=== PATIENT | female | born 1980 | race Asian ===

== ENCOUNTER 2022-05-29 18:28 | Emergency (ER) | payer OTHER, SELFPAY ==
--- NOTE | 2022-05-29 18:33 | DI.US.S_ITS ---
PROCEDURE: US OB <= 14 WEEKS FETUS INDICATIONS: SPOTTING. OUTSIDE/PRIOR DATING DATA: Last menstrual period (LMP): 04/19/2022. LMP-based estimated date of delivery (CLEVE): 01/24/2023. TECHNIQUE: Real-time scanning was performed of the fetus and maternal pelvic organs, with image documentation. Endovaginal scanning was also performed to better visualize the fetus and maternal ovaries. COMPARISON: None. FINDINGS: Embryo: There is heterogeneous thickening of the endometrium with indistinct margins. Multiple cystic structures are demonstrated within the endometrium and myometrium with the largest posteriorly in the lower uterine segment measuring up to approximately 1.0 cm in dimension. There is associated heterogeneous appearance of the myometrium. No discrete pole identified. No definite yolk sacs. Posteriorly within the myometrium, there is an ill-defined hypoechoic oval mass lesion measuring approximately 2.1 x 1.6 x 1.5 cm consistent with an intramural fibroid. Maternal organs: The right ovary was not well visualized. The left ovary demonstrates 2 oval hypoechoic structures including a thick-walled cyst measuring up to 2.1 x 1.6 x 1.4 cm likely representing a corpus luteal cyst. An additional oval hypoechoic region measuring 1.6 x 1.1 x 1.4 cm is nonspecific. IMPRESSION: 1. Heterogeneous thickened appearance of the endometrium with indistinct margins. Multiple small scattered cystic lesions are demonstrated within the endometrium and myometrium without a discrete pole. The findings are nonspecific and the differential includes adenomyosis or spontaneous in progress. A viable intrauterine is not definitively identified. However, clinical follow-up is recommended with serial beta HCGs and a repeat ultrasound if indicated. 2. Probable corpus luteal cyst in the left ovary as well as an additional small oval hypoechoic structure. Recommend attention on follow-up. Findings discussed with Dr. Truong on 05/29/2022 at 9:44 p.m.. We strive to produce accurate, complete, and clear reports of imaging services. To assist us in improving patient care, this report was composed using standard report templates and voice recognition software. Therefore, it may contain abnormal punctuation, insertions and/or omissions. Occasional wrong-word or sound-alike substitutions may occur. Though we review the report and make efforts to correct it, we do recommend that the report be read carefully in proper context to recognize any text inaccuracies. Dictated by: Don Rogers M.D. on 05/29/2022 at 21:42 Approved by: Don Rogers M.D. on 05/29/2022 at 21:54
[2022-05-29 18:37] VITALS: BP 140/69; PULSE 87; RESP 18; TEMP 37.1; O2SAT 100; BMI 16.7
[2022-05-29 19:05] LABS: Add Manual Diff / Slide Review NO; Basophils Absolute Auto 100 /uL (0-100); Basophils Percent Auto 0.9 % (0-2); Eosinophils Absolute Auto 200 /uL (0-450); Eosinophils Percent Auto 2.9 % (2-4); Hematocrit 37.6 % (36-46); Hemoglobin 12.5 g/dL (12.0-16.0); Lymphocytes Absolute Auto 1600 /uL (1100-4500); Mean Corpuscular HGB Conc 33.3 % (30-36); Mean Corpuscular Hemoglobin 27.1 PG (26-34); Mean Corpuscular Volume 81.4 fL (80-100); Monocytes Absolute Auto 600 /uL (0-900); Monocytes Percent Auto 9.1 % (3-14); Neutrophils Absolute Auto 3800 /uL (1500-7000); Neutrophils Percent Auto 61.1 % (50-75); Platelet Count 275 X10^3/uL (150-400); Red Blood Cell Count 4.62 X10^6/uL (4.0-5.2); Red Cell Distribution Width 14.5 % (11.6-14.8); White Blood Cell Count 6.2 X10^3/uL (4.5-11.0)
[2022-05-29 19:22] LABS: BUN Creatinine Ratio 16.9 (6-22); Blood Urea Nitrogen 13 mg/dL (7-17); Calcium 8.9 mg/dL (8.4-10.2); Carbon Dioxide 25 mmol/L (22-32); Chloride 105 mmol/L (98-107); Estimated Glomerular Filt Rate > 60 mL/min (>60); Glucose 114 mg/dL (70-100); HEMOLYSIS 38 (0-50); Potassium 3.7 mmol/L (3.4-5.1); Sodium 139 mmol/L (137-145)
[2022-05-29 19:39] LABS: HCG Quantitative /Beta subunit 1148.5 mIU/mL
[2022-05-29 19:44] LABS: Bacteria Urine Occasional (0-1); Culture Indicated Urine Cult Not Indicated; RBC Urine 0-1/HPF (0-5/HPF); Squamous Epithelial Cell Urine 10-30 /HPF (0-5/HPF); WBC Urine 5-10/HPF (0-5/HPF)
--- NOTE | 2022-05-29 20:04 | ED_ITS ---
HPI - General Chief complaint: Vaginal Bleeding Stated complaint: 6 weeks /spotting Time Seen by Provider: 05/29/22 19:49 Source: patient Mode of arrival: Ambulatory Limitations: no limitations History of Present Illness HPI Narrative: 42-year-old female nonsmoker is a at about 6 weeks based on last menstrual cycle. She presents today with her in the chief complaint of a minimal amount of painless spotting earlier today that has since resolved. She denies any dizziness, weakness or lightheadedness. She has no fever or chills. She denies any urinary complaints such as dysuria, frequency or urgency and denies any leakage of fluid or vaginal discharge. Related Data Home Medications Medication Instructions Recorded Confirmed No Known Home Medications 02/11/22 02/11/22 Allergies Allergy/AdvReac Type Severity Reaction Status Date / Time latex Allergy Intermediate Hives Verified 05/29/22 18:40 Review of Systems Review of Systems Narrative: GENERAL: Denies chills, fatigue, malaise, fever, sweats. HEENT: Denies sinus pain, ear pain, sore throat, difficulty swallowing, dizzin ess. RESPIRATORY: Denies dyspnea, cough, wheezing, hemoptysis, sputum. CARDIOVASCULAR: Denies chest pain, palpitations, orthopnea, edema, GASTROINTESTINAL: Denies nausea, vomiting, abdominal pain, diarrhea, constipation, melena. : See HPI MUSCULOSKELETAL: denies weakness, joint pain, or bony pain SKIN: Denies rash, skin lesions, or other NEUROLOGIC: Denies weakness, headache, numbness, change in speech, confusion, seizures, incoordination. PSYCHIATRIC: No concerning psychosocial issues. 12 point review of systems is negative except for those stated above Exam Narrative Exam Narrative: GENERAL: [42] year old patient appears stated age. Well-developed patient, in mild distress. HEAD: Atraumatic. Normocephalic. EYES: Pupils equal round and reactive. Extraocular motions intact. No scleral icterus. No injection or drainage. ENT: Nose without bleeding, purulent drainage. Throat without erythema, tonsillar hypertrophy or exudate. Airway patent. NECK: Trachea midline. Non tender CARDIOVASCULAR: Regular rate and rhythm without murmurs, gallops, or rubs. RESPIRATORY: Clear to auscultation. Breath sounds equal bilaterally. No wheezes, rales, or rhonchi. GASTROINTESTINAL: Abdomen soft, non-tender, nondistended. EXTREMITIES: No edema or joint tenderness. BACK: Nontender without deformity or crepitance. No flank tenderness. NEURO: AOx3. SKIN: No rash or erythema of visible areas Initial Vital Signs Initial Vital Signs: Vital Signs Temperature 98.7 F 05/29/22 18:37 Pulse Rate 87 05/29/22 18:37 Respiratory Rate 18 05/29/22 18:37 Blood Pressure 140/69 05/29/22 18:37 Pulse Oximetry 100 05/29/22 18:37 Oxygen Delivery Method 05/29/22 18:37 Course Orders Ordered: ED Orders 05/29/22 18:33 US OB <= 14 weeks fetus Stat 05/29/22 18:46 ABO RH Type Stat Basic Metabolic Panel Stat Beta HCG, Quant [HCG Quantitative /Beta subunit] Stat Complete Blood Count AUTO DIFF Stat 05/29/22 18:51 Urine Microscopic Stat Vital Signs Vital signs: Vital Signs - 8 hr 05/29/22 20:35 Pulse Rate 90 Respiratory Rate 16 Blood Pressure 116/69 Pulse Oximetry 99 Oxygen Delivery Method Room Air MDM - OB/Uterine Contractions Lab Data Result diagrams: 05/29/22 18:46 05/29/22 18:46 Labs: Lab Results 05/29/22 05/29/22 05/29/22 Range/Units 18:46 18:46 18:46 WBC 6.2 (4.5-11.0) X10^3/uL RBC 4.62 (4.0-5.2) X10^6/uL Hgb 12.5 (12.0-16.0) g/dL Hct 37.6 (36-46) % MCV 81.4 (80-100) fL MCH 27.1 (26-34) PG MCHC 33.3 (30-36) % RDW 14.5 (11.6-14.8) % Plt Count 275 (150-400) X10^3/uL Neut % (Auto) 61.1 (50-75) % Lymph % (Auto) 26.0 (25-40) % [place] % (Auto) 9.1 (3-14) % Eos % (Auto) 2.9 (2-4) % Baso % (Auto) 0.9 (0-2) % Neut # (Auto) 3800 (1402-9654) /uL Lymph # (Auto) 1600 (6928-5937) /uL [place] # (Auto) 600 (0-900) /uL Eos # (Auto) 200 (0-450) /uL Baso # (Auto) 100 (0-100) /uL Sodium 139 (137-145) mmol/L Potassium 3.7 (3.4-5.1) mmol/L Chloride 105 (98-107) mmol/L Carbon Dioxide 25 (22-32) mmol/L BUN 13 (7-17) mg/dL Creatinine 0.77 (0.52-1.04) mg/dL Estimated GFR > 60 (>60) mL/min BUN/Creatinine Ratio 16.9 (6-22) Glucose 114 H (70-100) mg/dL Calcium 8.9 (8.4-10.2) mg/dL HCG, Quant 1148.5 mIU/mL Urine RBC (0-5/HPF) Urine WBC (0-5/HPF) Ur Squamous Epith Cells (0-5/HPF) Urine Bacteria (None) Ur Culture Indicated? Blood Type B Positive 05/29/22 Range/Units 18:51 WBC (4.5-11.0) X10^3/uL RBC (4.0-5.2) X10^6/uL Hgb (12.0-16.0) g/dL Hct (36-46) % MCV (80-100) fL MCH (26-34) PG MCHC (30-36) % RDW (11.6-14.8) % Plt Count (150-400) X10^3/uL Neut % (Auto) (50-75) % Lymph % (Auto) (25-40) % [place] % (Auto) (3-14) % Eos % (Auto) (2-4) % Baso % (Auto) (0-2) % Neut # (Auto) (2754-3814) /uL Lymph # (Auto) (5953-9083) /uL [place] # (Auto) (0-900) /uL Eos # (Auto) (0-450) /uL Baso # (Auto) (0-100) /uL Sodium (137-145) mmol/L Potassium (3.4-5.1) mmol/L Chloride (98-107) mmol/L Carbon Dioxide (22-32) mmol/L BUN (7-17) mg/dL Creatinine (0.52-1.04) mg/dL Estimated GFR (>60) mL/min BUN/Creatinine Ratio (6-22) Glucose (70-100) mg/dL Calcium (8.4-10.2) mg/dL HCG, Quant mIU/mL Urine RBC 0-1/hpf (0-5/HPF) Urine WBC 5-10/hpf H (0-5/HPF) Ur Squamous Epith Cells 10-30 /hpf H (0-5/HPF) Urine Bacteria Occasional (0-1) (None) Ur Culture Indicated? Cult not indicated Blood Type Urine Dip Bedside Urine Glucose Negative Bedside Urine Bilirubin - Negative Bedside Urine Ketone - Negative Urine Specific [place] 1.005 Bedside Urine Occult Blood +++ Bedside Urine pH 6.5 Bedside Urine Protein - Negative Bedside Urine Urobilinogen - Negative Bedside Urine Nitrite - Negative Bedside Urine Leukocytes +/- 15 Esterase Imaging Data US - OB: Radiologist's Impression: Close Ultrasound (Signed) Don Rogers - 05/29/22 [place] [address] Ultrasound Report Signed Patient: Luz Maria Rodriguez MR#: [id number] : 1980 Acct:[id number] Age/Sex: 42 / F Date of Service: 05/29/22 Loc: Accession Number: [id number] ?? Procedure: US OB <= 14 weeks fetus Ordering Provider: Rowdy Truong D.O. PROCEDURE:? US OB <= 14 WEEKS FETUS ? INDICATIONS:? SPOTTING. ? OUTSIDE/PRIOR DATING DATA:? Last menstrual period (LMP):? 04/19/2022. LMP-based estimated date of delivery (CLEVE):? 01/24/2023.? ? TECHNIQUE:? Real-time scanning was performed of the fetus and maternal pelvic organs, with image documentation.? Endovaginal scanning was also performed to better visualize the fetus and maternal ovaries.? ? COMPARISON:? None. ? FINDINGS:? ? Embryo:? There is heterogeneous thickening of the endometrium with indistinct margins.? Multiple cystic structures are demonstrated within the endometrium and myometrium with the largest posteriorly in the lower uterine segment measuring up to approximately 1.0 cm in dimension.? There is associated heterogeneous appearance of the myometrium.? No discrete pole identified.? No definite yolk sacs. ? Posteriorly within the myometrium, there is an ill-defined hypoechoic oval mass lesion measuring approximately 2.1 x 1.6 x 1.5 cm consistent with an intramural fibro id. ? Maternal organs:? The right ovary was not well visualized.? The left ovary demonstrates 2 oval hypoechoic structures including a thick-walled cyst measuring up to 2.1 x 1.6 x 1.4 cm likely representing a corpus luteal cyst.? An additional oval hypoechoic region measuring 1.6 x 1.1 x 1.4 cm is nonspecific. ? ? IMPRESSION:? ? 1. Heterogeneous thickened appearance of the endometrium with indistinct margins.? Multiple small scattered cystic lesions are demonstrated within the endometrium and myometrium without a discrete pole.? The findings are nonspecific and the differential includes adenomyosis or spontaneous in progress.? A viable intrauterine is not definitively identified.? However, clinical follow-up is recommended with serial beta HCGs and a repeat ultrasound if indicated. ? 2. Probable corpus luteal cyst in the left ovary as well as an additional small oval hypoechoic structure.? Recommend attention on follow-up. ? Findings discussed with Dr. Truong on 05/29/2022 at 9:44 p.m.. ? We strive to produce accurate, complete, and clear reports of imaging services. To assist us in improving patient care, this report was composed using standard report templates and voice recognition software. Therefore, it may contain abnormal punctuation, insertions and/or omissions. Occasional wrong-word or sound-alike substitutions may occur. Though we review the report and make efforts to correct it, we do recommend that the report be read carefully in proper context to recognize any text inaccuracies. ? Dictated by: Don Rogers M.D. on 05/29/2022 at 21:42 ? ? Approved by: Don Rogers M.D. on 05/29/2022 at 21:54 ? Discharge Plan Departure Patient Disposition: Home Clinical Impression: Vaginal bleeding affecting early Instructions: DI for Vaginal Bleeding During Activity Restrictions/Additional Instructions: *You have been diagnosed with [vaginal bleeding early in .] *What to do: *Please continue to take your regular medications as directed. *Please follow up with your salicylic acid blender provider in 2-3 days, call for an appointment. Let them know you were seen in the Emergency Department and that we ask that you be seen in follow up. We will electronically transmit a record of today's note if they are in our system *Return to Emergency Department if you should have any new, worsening or concerning symptoms, such as [fever greater than 101 F, shaking chills, bleeding through a pad per hour, worsening pain, persistent vomiting or other bothersome symptoms] Prescriptions: No Action No Known Home Medications Referrals: Miscellaneous,DoctorMD [Primary Care Provider] - Marcie Voss DO [Physician] - Visit Report Forms: Patient Portal/API
[2022-05-29 20:35] VITALS: BP 116/69; PULSE 90; RESP 16; O2SAT 99
== END 2022-05-29 21:54 | disposition home or self-care (01) ==
PROVIDERS: Emergency Provider Emergency Medicine
DX: O20.9 Hemorrhage in early pregnancy, unspecified (principal); Z3A.01 Less than 8 weeks gestation of pregnancy
CPT/HCPCS: 76801; 76802; 76817; 80048; 81003; 81015; 84702; 85025; 86900; 86901; 99283; 99284

== ENCOUNTER 2022-06-03 13:35 | Emergency (ER) | payer OTHER, SELFPAY ==
[2022-06-03 13:37] VITALS: BP 123/56; PULSE 84; RESP 17; TEMP 36.6; O2SAT 100; BMI 16.7
--- NOTE | 2022-06-03 13:47 | DI.US.S_ITS ---
PROCEDURE: US OB <= 14 WEEKS FETUS INDICATIONS: bleeding and pain OUTSIDE/PRIOR DATING DATA: Last menstrual period (LMP): April 19, 2022. LMP-based estimated date of delivery (CLEVE): January 24, 2023. First dating scan (date and location): June 03, 2022, [facility]. Estimated date of delivery (CLEVE) from first dating scan: January 28, 2023. TECHNIQUE: Real-time scanning was performed of the fetus and maternal pelvic organs, with image documentation. Endovaginal scanning was also performed to better visualize the fetus and maternal ovaries. COMPARISON: [facility], , OB <= 14 WEEKS FETUS, 05/29/2022, 19:30. FINDINGS: Embryo: There is a single live intrauterine gestation with a gestational age of 5 weeks, 6 days by crown-rump length. A yolk sac is visualized. Heart rate: 89 BPM Maternal organs: Ovaries the right ovary has a normal appearance. Multiple cystic regions are redemonstrated within the uterus, likely similar to the comparison ultrasound dated May 29, 2022. There is likely a left corpus luteal cyst redemonstrated. IMPRESSION: 1. Single live intrauterine gestation with a gestational age of 5 weeks, 6 days by crown-rump length and a heart rate of 89 BPM. We strive to produce accurate, complete, and clear reports of imaging services. To assist us in improving patient care, this report was composed using standard report templates and voice recognition software. Therefore, it may contain abnormal punctuation, insertions and/or omissions. Occasional wrong-word or sound-alike substitutions may occur. Though we review the report and make efforts to correct it, we do recommend that the report be read carefully in proper context to recognize any text inaccuracies. Dictated by: La Cruz M.D. on 06/03/2022 at 15:21 Approved by: La Cruz M.D. on 06/03/2022 at 15:25
[2022-06-03 14:56] LABS: Add Manual Diff / Slide Review NO; Basophils Absolute Auto 300 /uL (0-100); Basophils Percent Auto 3.8 % (0-2); Eosinophils Absolute Auto 100 /uL (0-450); Eosinophils Percent Auto 2.1 % (2-4); Hematocrit 36.5 % (36-46); Hemoglobin 12.5 g/dL (12.0-16.0); Lymphocytes Absolute Auto 1300 /uL (1100-4500); Lymphocytes Percent Auto 18.8 % (25-40); Mean Corpuscular HGB Conc 34.1 % (30-36); Mean Corpuscular Hemoglobin 27.6 PG (26-34); Monocytes Absolute Auto 500 /uL (0-900); Neutrophils Absolute Auto 4800 /uL (1500-7000); Neutrophils Percent Auto 68.3 % (50-75); Platelet Count 248 X10^3/uL (150-400); Red Blood Cell Count 4.51 X10^6/uL (4.0-5.2); Red Cell Distribution Width 14.5 % (11.6-14.8)
[2022-06-03 15:07] LABS: Alanine Aminotransferase 22 IU/L (<35); Albumin 4.4 g/dL (3.5-5.0); Albumin Globulin Ratio 1.4 (1.0-2.8); Alkaline Phosphatase 37 U/L (38-126); Aspartate Aminotransferase 27 IU/L (14-36); BUN Creatinine Ratio 13.3 (6-22); Bilirubin Total 0.4 mg/dL (0.2-1.3); Blood Urea Nitrogen 8 mg/dL (7-17); Calcium 8.5 mg/dL (8.4-10.2); Carbon Dioxide 24 mmol/L (22-32); Chloride 105 mmol/L (98-107); Estimated Glomerular Filt Rate > 60 mL/min (>60); Globulin 3.1 g/dL (1.7-4.1); Glucose 100 mg/dL (70-100); HEMOLYSIS < 15 (0-50); Potassium 3.6 mmol/L (3.4-5.1); Sodium 140 mmol/L (137-145); Total Protein 7.5 g/dL (6.3-8.2)
--- NOTE | 2022-06-03 15:27 | ED_ITS ---
HPI - General Chief complaint: Vaginal Bleeding Stated complaint: L side abd pain, back pain, 6wks Time Seen by Provider: 06/03/22 14:49 Source: patient Mode of arrival: Ambulatory History of Present Illness HPI Narrative: Patient is a 42-year-old female presenting for the 2nd time in 1 week with vaginal bleeding and cramping. She was seen evaluated here 05/29/2022 for the same. She had an ultrasound and blood work at that time hCG was 1148. She did not have recheck in 48 hours. Today she had severe left-sided cramping all the way front tab off. She feels a little nauseous. She says the bleeding has never stopped. It is not significant. She does not feel cold past throughout the day. She notices it more when she wipes. Related Data Home Medications Medication Instructions Recorded Confirmed No Known Home Medications 02/11/22 06/03/22 Allergies Allergy/AdvReac Type Severity Reaction Status Date / Time latex Allergy Intermediate Hives Verified 06/03/22 13:47 Review of Systems Review of Systems Narrative: GENERAL: Denies chills, fatigue, malaise, fever, sweats, travel HEENT: Denies sinus pain, ear pain, sore throat, difficulty swallowing, neck pain RESPIRATORY: Denies dyspnea, cough, wheezing, hemoptysis, sputum. CARDIOVASCULAR: Denies chest pain, palpitations, orthopnea, edema GASTROINTESTINAL: See HPI : Denies dysuria, frequency, incontinence, hematuria, urinary retention, flank pain. [employer] SYSTEMS ADMINISTRATOR: See HPI MUSCULOSKELETAL: Denies weakness, joint pain, or bony pain SKIN: No rash, no erythema, no pruritus NEUROLOGIC: Denies weakness, dizziness, headache, numbness, change in speech, confusion PSYCHIATRIC: No concerning psychosocial issues. 12 point review of systems is negative except for those stated above and HPI Exam Initial Vital Signs Initial Vital Signs: Vital Signs Temperature 97.8 F 06/03/22 13:37 Pulse Rate 84 06/03/22 13:37 Respiratory Rate 17 06/03/22 13:37 Blood Pressure 123/56 L 06/03/22 13:37 Pulse Oximetry 100 06/03/22 13:37 Oxygen Delivery Method 06/03/22 13:37 GENERAL: Anxious alert 42-year-old female and in no acute distress. HEENT: Head atraumatic,EOMI, pupils reactive, face symmetric, moist mucous mem branes CARDIOVASCULAR: Regular rate and rhythm without murmurs, rubs or gallops. RESPIRATORY: Breath sounds equal bilaterally, no wheezes rales or rhonchi. ABDOMEN: Soft, nontender. Normoactive bowel sounds all 4 quadrants. No guarding or rebound. : No CVA tenderness EXTREMITIES: Normal range of motion, no clubbing or edema. Neurovascularly intact NEUROLOGICAL: Alert and oriented x4. SKIN: Warm, dry, no laceration, no petechiae, no rashes or lesions. Course Orders Ordered: ED Orders 06/03/22 13:47 US OB <= 14 weeks fetus Stat 06/03/22 14:40 ABO RH Type Stat Complete Blood Count AUTO DIFF Stat Comprehensive Metabolic Panel Stat HCG Quantitative /Beta subunit Stat Vital Signs Vital signs: Vital Signs - 8 hr 06/03/22 13:37 Temperature 97.8 F Pulse Rate 84 Respiratory Rate 17 Blood Pressure 123/56 L Pulse Oximetry 100 Oxygen Delivery Method Room Air MDM - OB/Uterine Contractions Lab Data Result diagrams: 06/03/22 14:40 06/03/22 14:40 Labs: Lab Results 06/03/22 06/03/22 06/03/22 Range/Units 14:40 14:40 14:40 WBC 7.0 (4.5-11.0) X10^3/uL RBC 4.51 (4.0-5.2) X10^6/uL Hgb 12.5 (12.0-16.0) g/dL Hct 36.5 (36-46) % MCV 81.0 (80-100) fL MCH 27.6 (26-34) PG MCHC 34.1 (30-36) % RDW 14.5 (11.6-14.8) % Plt Count 248 (150-400) X10^3/uL Neut % (Auto) 68.3 (50-75) % Lymph % (Auto) 18.8 L (25-40) % [place] % (Auto) 7.0 (3-14) % Eos % (Auto) 2.1 (2-4) % Baso % (Auto) 3.8 H (0-2) % Neut # (Auto) 4800 (9443-9949) /uL Lymph # (Auto) 1300 (8457-7729) /uL Wright # (Auto) 500 (0-900) /uL Eos # (Auto) 100 (0-450) /uL Baso # (Auto) 300 H (0-100) /uL Sodium 140 (137-145) mmol/L Potassium 3.6 (3.4-5.1) mmol/L Chloride 105 (98-107) mmol/L Carbon Dioxide 24 (22-32) mmol/L BUN 8 (7-17) mg/dL Creatinine 0.60 (0.52-1.04) mg/dL Estimated GFR > 60 (>60) mL/min BUN/Creatinine Ratio 13.3 (6-22) Glucose 100 (70-100) mg/dL Calcium 8.5 (8.4-10.2) mg/dL Total Bilirubin 0.4 (0.2-1.3) mg/dL AST 27 (14-36) IU/L ALT 22 (<35) IU/L Alkaline Phosphatase 37 L (38-126) U/L Total Protein 7.5 (6.3-8.2) g/dL Albumin 4.4 (3.5-5.0) g/dL Globulin 3.1 (1.7-4.1) g/dL Albumin/Globulin Ratio 1.4 (1.0-2.8) HCG, Quant 2008.5 mIU/mL Urine RBC (0-5/HPF) Urine WBC (0-5/HPF) Urine Bacteria (None) Ur Culture Indicated? Blood Type B Positive 06/03/22 Range/Units 15:55 WBC (4.5-11.0) X10^3/uL RBC (4.0-5.2) X10^6/uL Hgb (12.0-16.0) g/dL Hct (36-46) % MCV (80-100) fL MCH (26-34) PG MCHC (30-36) % RDW (11.6-14.8) % Plt Count (150-400) X10^3/uL Neut % (Auto) (50-75) % Lymph % (Auto) (25-40) % Wright % (Auto) (3-14) % Eos % (Auto) (2-4) % Baso % (Auto) (0-2) % Neut # (Auto) (2304-6211) /uL Lymph # (Auto) (0892-6990) /uL Wright # (Auto) (0-900) /uL Eos # (Auto) (0-450) /uL Baso # (Auto) (0-100) /uL Sodium (137-145) mmol/L Potassium (3.4-5.1) mmol/L Chloride (98-107) mmol/L Carbon Dioxide (22-32) mmol/L BUN (7-17) mg/dL Creatinine (0.52-1.04) mg/dL Estimated GFR (>60) mL/min BUN/Creatinine Ratio (6-22) Glucose (70-100) mg/dL Calcium (8.4-10.2) mg/dL Total Bilirubin (0.2-1.3) mg/dL AST (14-36) IU/L ALT (<35) IU/L Alkaline Phosphatase (38-126) U/L Total Protein (6.3-8.2) g/dL Albumin (3.5-5.0) g/dL Globulin (1.7-4.1) g/dL Albumin/Globulin Ratio (1.0-2.8) HCG, Quant mIU/mL Urine RBC 5-10/hpf H (0-5/HPF) Urine WBC None seen (0-5/HPF) Urine Bacteria None seen (None) Ur Culture Indicated? Cult not indicated Blood Type Urine Dip Bedside Urine Glucose Negative Bedside Urine Bilirubin - Negative Bedside Urine Ketone - Negative Urine Specific [place] 1.015 Bedside Urine Occult Blood ++ Bedside Urine pH 6.0 Bedside Urine Protein - Negative Bedside Urine Urobilinogen - Negative Bedside Urine Nitrite - Negative Bedside Urine Leukocytes - Negative Esterase Imaging Data US - [employer] SYSTEMS ADMINISTRATOR: Radiologist's Impression: : Luz Maria Rodriguez MR#: [id number] : 1980 Acct:[id number] Age/Sex: 42 / F Date of Service: 06/03/22 Loc: ED Accession Number: [id number] ?? Procedure: US OB <= 14 weeks fetus Ordering Provider: Elsa Claudio D.O. PROCEDURE:? US OB <= 14 WEEKS FETUS ? INDICATIONS:? bleeding and pain ? OUTSIDE/PRIOR DATING DATA:? Last menstrual period (LMP):? April 19, 2022.? LMP-based estimated date of delivery (CLEVE):? January 24, 2023.? First dating scan (date and location):? June 03, 2022, [facility].? Estimated date of delivery (CLEVE) from first dating scan:? January 28, 2023. ? TECHNIQUE:? Real-time scanning was performed of the fetus and maternal pelvic organs, with image documentation.? Endovaginal scanning was also performed to better visualize the fetus and maternal ovaries.? ? COMPARISON:? [facility], , US OB <= 14 WEEKS FETUS, 05/29/2022, 19:30. ? FINDINGS:? ? Embryo:? There is a single live intrauterine gestation with a gestational age of 5 weeks, 6 days by crown-rump length.? A yolk sac is visualized. Heart rate:? 89 BPM ? Maternal organs:? Ovaries the right ovary has a normal appearance.? Multiple cystic regions are redemonstrated within the uterus, likely similar to the comparison ultrasound dated May 29, 2022. There is likely a left corpus luteal cyst redemonstrated. ? ? ? IMPRESSION:? ? 1. Single live intrauterine gestation with a gestational age of 5 weeks, 6 days by crown-rump length and a heart rate of 89 BPM. ? We strive to produce accurate, complete, and clear reports of imaging services. To assist us in improving patient care, this report was composed using standard report templates and voice recognition software. Therefore, it may contain abnormal punctuation, insertions and/or omissions. Occasional wrong-word or sound-alike substitutions may occur. Though we review the report and make efforts to correct it, we do recommend that the report be read carefully in proper context to recognize any text inaccuracies. ? ? ? Dictated by: La Cruz M.D. on 06/03/2022 at 15:21 ? ? Approved by: La Cruz M.D. on 06/03/2022 at 15:25 ? MDM Narrative Medical decision making narrative: Patient had severe increased abdominal cramping today. Ultrasound confirms an IUP of 5 weeks 6 days with heart rate of 84. HCG is not as high as I would expect it to be. 5 days ago 1148 today is 2000. I strongly encourage her to have a repeat HCG at 48 hour cheri. If she is [place] do [place] I recommend coming back to the ED and we will happily check. Urine is negative for infection. She was offered Tylenol here. Discharge Plan Departure Patient Disposition: Home Clinical Impression: Threatened Instructions: DI for Threatened Activity Restrictions/Additional Instructions: *You have been diagnosed with threatened miscarriage *What to do: You do need to have a repeat hCG done in 48 hours. Today it was 1999. Please call your PCM to have this done You may also return to the emergency department 48 hours to have a repeat hCG *Continue to take medications as directed Tylenol 1000 mg every 6 hours if needed for pain *Follow up with your primary care provider in 2-3 days or call [phone] *Return to ER if you should have increasing vaginal bleeding more than 1 pad an 1 hour, increased pain or any new, worsening or concerning symptoms Prescriptions: No Action No Known Home Medications Referrals: Miscelina,Doctor, MD [Primary Care Provider] - Visit Report Forms: Patient Portal/API
[2022-06-03 16:28] LABS: Bacteria Urine None Seen; Culture Indicated Urine Cult Not Indicated; RBC Urine 5-10/HPF (0-5/HPF); WBC Urine None Seen (0-5/HPF)
[2022-06-03 16:55] VITALS: BP 111/56; PULSE 87; RESP 16; O2SAT 98
== END 2022-06-03 16:56 | disposition home or self-care (01) ==
PROVIDERS: Emergency Provider Emergency Medicine
DX: O20.0 Threatened abortion (principal); Z3A.01 Less than 8 weeks gestation of pregnancy
CPT/HCPCS: 76801; 76817; 80053; 81003; 81015; 84702; 85025; 86900; 86901; 99282; 99284

== ENCOUNTER → 2022-06-06 17:24 | Outpatient (CLI) | payer OTHER, SELFPAY ==
[2022-06-06 18:40] LABS: Progesterone, Total 4.81 ng/mL
== END ==
PROVIDERS: Referring Provider Obstetrics & Gynecology; Visit Provider Obstetrics & Gynecology
DX: O20.9 Hemorrhage in early pregnancy, unspecified (principal)
CPT/HCPCS: 36415; 84144

== ENCOUNTER → 2022-06-06 17:28 | Outpatient (CLI) | payer OTHER, SELFPAY ==
--- NOTE | 2022-06-06 17:28 | DI.US.S_ITS ---
PROCEDURE: US OB <= 14 WEEKS FETUS INDICATIONS: bleeding OUTSIDE/PRIOR DATING DATA: Last menstrual period (LMP): 04/19/2022. LMP-based estimated date of delivery (CLEVE): 01/24/2023. First dating scan (date and location): 06/03/2022. Estimated date of delivery (CLEVE) from first dating scan: 01/28/2023. TECHNIQUE: Real-time scanning was performed of the fetus and maternal pelvic organs, with image documentation. Endovaginal scanning was also performed to better visualize the fetus and maternal ovaries. COMPARISON: [facility], , OB <= 14 WEEKS FETUS, 06/03/2022, 14:05. FINDINGS: Single intrauterine consists of a gestational sac containing a yolk sac and pole. Albia-rump length measures 3.9 mm corresponding with a 6 week 0 day gestation. There is a suggestion of a perigestational bleed which is ill-defined. Cardiac motion varies between 89 and 66 beats per minute. Maternal adnexa unremarkable. IMPRESSION: 1. Single live intrauterine corresponds with a 6 week 0 day gestation. 2. Cardiac motion vary between 89 and 66 beats per minute 3. Possible ill-defined perigestational bleed. Consider additional short-term interval follow-up Approved by: Rajat Carlos M.D. on 06/06/2022 at 17:52
== END ==
PROVIDERS: Referring Provider Family Medicine; Visit Provider Family Medicine
DX: O20.9 Hemorrhage in early pregnancy, unspecified (principal); R58 Hemorrhage, not elsewhere classified; Z3A.01 Less than 8 weeks gestation of pregnancy
CPT/HCPCS: 36415; 76801; 76817; 84144

== ENCOUNTER 2022-06-08 10:38 | Emergency (ER) | payer OTHER, SELFPAY ==
[2022-06-08 10:49] VITALS: BP 118/66; PULSE 73; RESP 18; TEMP 36.6; O2SAT 99; BMI 17.2
--- NOTE | 2022-06-08 10:53 | DI.US.S_ITS ---
PROCEDURE: US PELVIC COMPLETE INDICATIONS: SAB TECHNIQUE: Real-time scanning was performed of the pelvic organs, with image documentation. Additional endovaginal scanning was necessary due to incomplete visualization of the adnexal and endometrial structures by transabdominal scanning. COMPARISON: None. FINDINGS: Uterus: Uterus is anteverted and normal in size at 9.2 x 5.2 cm. The myometrium is heterogenous. Left posterior uterine fibroid measures 4.1 x 2.8 x 3.1 cm The endometrium measures 15.8 mm combined thickness. No evidence of intrauterine Ovaries: Neither ovary visualized Other: No pathologic free abdominal or pelvic fluid. IMPRESSION: 1. No evidence of intrauterine . Endometrium is thickened at 1.6 cm, but no evidence of retained products of conception. 2. Posterior uterine fibroid measures 4.1 cm 3. Nonvisualized ovaries Approved by: Rajat Carlos M.D. on 06/08/2022 at 11:06
[2022-06-08 11:13] LABS: Add Manual Diff / Slide Review NO; Basophils Absolute Auto 100 /uL (0-100); Basophils Percent Auto 0.9 % (0-2); Eosinophils Absolute Auto 200 /uL (0-450); Eosinophils Percent Auto 2.8 % (2-4); Hematocrit 35.6 % (36-46); Hemoglobin 12.2 g/dL (12.0-16.0); Lymphocytes Absolute Auto 1100 /uL (1100-4500); Lymphocytes Percent Auto 19.2 % (25-40); Mean Corpuscular HGB Conc 34.1 % (30-36); Mean Corpuscular Hemoglobin 27.6 PG (26-34); Mean Corpuscular Volume 80.9 fL (80-100); Monocytes Absolute Auto 400 /uL (0-900); Monocytes Percent Auto 6.9 % (3-14); Neutrophils Absolute Auto 3900 /uL (1500-7000); Neutrophils Percent Auto 70.2 % (50-75); Platelet Count 261 X10^3/uL (150-400); Red Cell Distribution Width 14.1 % (11.6-14.8); White Blood Cell Count 5.6 X10^3/uL (4.5-11.0)
--- NOTE | 2022-06-08 11:14 | ED.GENADULT ---
HPI - General Adult General Chief complaint: Vaginal Bleeding Stated complaint: thinks she had a miscariage Time Seen by Provider: 06/08/22 10:52 Source: patient and family Mode of arrival: Ambulatory History of Present Illness HPI narrative: Patient is a at approximately 6 weeks EGA who was seen here in the emergency department approximately 1 week ago after having abdominal cramping and vaginal bleeding. She had an hCG quantitative that was approximately 1200. She had multiple ultrasounds since that time which does show a live intrauterine . Her last 1 was 2 days ago. She is here because over the past 24 hours she has had more vaginal bleeding, passage of what appeared to be tissue and clots this morning. No vomiting. No fevers. Related Data Home Medications Medication Instructions Recorded Confirmed No Known Home Medications 02/11/22 06/03/22 Allergies Allergy/AdvReac Type Severity Reaction Status Date / Time latex Allergy Intermediate Hives Verified 06/03/22 13:47 Review of Systems Constitutional Constitutional: Reports system reviewed and no additional complaints, except as documented Gastrointestinal Gastrointestinal: Reports system reviewed and no additional complaints, except as documented Genitourinary Genitourinary: Reports system reviewed and no additional complaints, except as documented Integumentary/Breasts Skin/Breast: Reports system reviewed and no additional complaints, except as documented Hematologic/Lymphatic On Anticoagulants: No Patient History Medical History Vaginal delivery Social History Smoking Status: Never smoker Smoking Status: Never smoker alcohol intake frequency: holidays/special occasions only Substance Use Type: does not use Exam Initial Vital Signs Initial Vital Signs: Vital Signs Temperature 97.9 F 06/08/22 10:49 Pulse Rate 73 06/08/22 10:49 Respiratory Rate 18 06/08/22 10:49 Blood Pressure 118/66 06/08/22 10:49 Pulse Oximetry 99 06/08/22 10:49 Oxygen Delivery Method 06/08/22 10:49 HENMT Head: normal to inspection and normocephalic Resp Effort & Inspection: normal respiratory effort Cardio Rate: regular rate GI Inspection: normal to inspection Skin General: no rashes or lesions noted Neuro General: patient alert, patient awake and moves all extremities Psych Appearance: grossly normal and well kempt Course Orders Ordered: ED Orders 06/08/22 10:53 US pelvic complete Stat 06/08/22 11:05 Complete Blood Count AUTO DIFF Stat HCG Quantitative /Beta subunit Stat Vital Signs Vital signs: Vital Signs - 8 hr 06/08/22 10:49 Temperature 97.9 F Pulse Rate 73 Respiratory Rate 18 Blood Pressure 118/66 Pulse Oximetry 99 Oxygen Delivery Method Room Air Medical Decision Making Lab Data Lab results reviewed: Yes I reviewed the patient's lab results. Result diagrams: 06/08/22 11:05 Labs: Lab Results 06/08/22 06/08/22 Range/Units 11:05 11:05 WBC 5.6 (4.5-11.0) X10^3/uL RBC 4.40 (4.0-5.2) X10^6/uL Hgb 12.2 (12.0-16.0) g/dL Hct 35.6 L (36-46) % MCV 80.9 (80-100) fL MCH 27.6 (26-34) PG MCHC 34.1 (30-36) % RDW 14.1 (11.6-14.8) % Plt Count 261 (150-400) X10^3/uL Neut % (Auto) 70.2 (50-75) % Lymph % (Auto) 19.2 L (25-40) % [place] % (Auto) 6.9 (3-14) % Eos % (Auto) 2.8 (2-4) % Baso % (Auto) 0.9 (0-2) % Neut # (Auto) 3900 (4594-4043) /uL Lymph # (Auto) 1100 (6384-2212) /uL [place] # (Auto) 400 (0-900) /uL Eos # (Auto) 200 (0-450) /uL Baso # (Auto) 100 (0-100) /uL HCG, Quant 2085.2 mIU/mL Imaging Data US - OB: Radiologist's Impression: [address] [address] Ultrasound Report Signed Patient: Luz Maria Rodriguez MR#: [id number] : 1980 Acct:[id number] Age/Sex: 42 / F Date of Service: 06/08/22 Loc: ED Accession Number: [id number] ?? Procedure: US pelvic complete Ordering Provider: Ke Melendez D.O. PROCEDURE:? US PELVIC COMPLETE ? INDICATIONS:? SAB ? TECHNIQUE:? Real-time scanning was performed of the pelvic organs, with image documentation.? Additional endovaginal scanning was necessary due to incomplete visualization of the adnexal and endometrial structures by transabdominal scanning.? ? COMPARISON:? None. ? FINDINGS:? ?? Uterus:? Uterus is anteverted and normal in size at 9.2 x 5.2 cm. The myometrium is heterogenous.? Left posterior uterine fibroid measures 4.1 x 2.8 x 3.1 cm ? The endometrium measures 15.8 mm combined thickness.? No evidence of intrauterine ? Ovaries:? Neither ovary visualized ? Other:? No pathologic free abdominal or pelvic fluid. ? IMPRESSION:? ? 1. No evidence of intrauterine .? Endometrium is thickened at 1.6 cm, but no evidence of retained products of conception. ? 2. Posterior uterine fibroid measures 4.1 cm ? 3. Nonvisualized ovaries ? ? Approved by: Rajat Carlos M.D. on 06/08/2022 at 11:06? [facility] Narrative Medical decision making narrative: Patient is Rh positive. Her beta hCG technically is increased but has not doubled since Thursday. Ultrasound today shows no signs of intrauterine and no signs of retained products of conception. There is no indication of any infection. I did discuss the lab test and the ultrasound with the patient and her who is at bedside. All questions were answered to apparent satisfaction. Patient was given return precautions and follow-up instructions. She expressed understanding and agreement. Discharge Plan Departure Patient Disposition: Home Clinical Impression: Complete miscarriage Activity Restrictions/Additional Instructions: I do recommend that tomorrow you contact your OB provider for a follow-up. Return to the emergency department for fevers, pain, worsening bleeding or any other new symptoms. Prescriptions: No Action No Known Home Medications Referrals: Mirta,MD Laurent [Primary Care Provider] -
[2022-06-08 11:43] LABS: HCG Quantitative /Beta subunit 2085.2 mIU/mL
== END 2022-06-08 12:40 | disposition home or self-care (01) ==
PROVIDERS: Emergency Provider Emergency Medicine
DX: O03.9 Complete or unspecified spontaneous abortion without complication (principal)
CPT/HCPCS: 36415; 76830; 76856; 84702; 85025; 99283; 99284

== ENCOUNTER → 2022-06-19 13:49 | Outpatient (CLI) | payer OTHER, SELFPAY ==
[2022-06-19 15:31] LABS: HCG Quantitative /Beta subunit 7.5 mIU/mL
== END ==
PROVIDERS: Referring Provider Obstetrics & Gynecology; Visit Provider Obstetrics & Gynecology
DX: O03.9 Complete or unspecified spontaneous abortion without complication (principal)
CPT/HCPCS: 36415; 84702

== ENCOUNTER 2022-10-12 22:23 | Emergency (ER) | payer OTHER, SELFPAY ==
[2022-10-12 22:30] VITALS: BP 128/83; PULSE 70; RESP 16; TEMP 36.9; O2SAT 100; BMI 17.2
[2022-10-12 23:01] LABS: RBC Urine 0-1/HPF (0-5/HPF); Squamous Epithelial Cell Urine 1-5 /HPF (0-5/HPF); WBC Urine 5-10/HPF (0-5/HPF)
[2022-10-12 23:02] LABS: Bacteria Urine Moderate (10-30)
--- NOTE | 2022-10-12 23:14 | ED.GENADULT ---
HPI - General Adult General Chief complaint: Urogenital-Female Stated complaint: low abd pain x5 days Time Seen by Provider: 10/12/22 22:46 Source: patient and family Mode of arrival: Ambulatory Limitations: no limitations History of Present Illness HPI narrative: 42-year-old otherwise healthy female who is here for evaluation approximately 5 days lower abdominal pain. She is on her menstrual cycle with this feels different than menstrual cramps. She is having some dysuria. Approximately 1 month ago she had a urinary tract infection was treated with Macrobid. The symptoms resolved now these are new symptoms. No fevers. No back pain. She has been taking azo at home without any improvement. No vomiting. Related Data Previous Rx's Medication Instructions Recorded cephalexin 500 mg capsule 500 mg PO BID 5 days #10 caps 10/12/22 Allergies Allergy/AdvReac Type Severity Reaction Status Date / Time latex Allergy Intermediate Hives Verified 10/12/22 22:40 Review of Systems Constitutional Constitutional: Reports system reviewed and no additional complaints, except as documented Gastrointestinal Gastrointestinal: Reports system reviewed and no additional complaints, except as documented Genitourinary Genitourinary: Reports system reviewed and no additional complaints, except as documented Integumentary/Breasts Skin/Breast: Reports system reviewed and no additional complaints, except as documented Patient History Medical History Vaginal delivery Social History Smoking Status: Never smoker Smoking Status: Never smoker alcohol intake frequency: holidays/special occasions only Substance Use Type: does not use Exam Initial Vital Signs Initial Vital Signs: Vital Signs Temperature 98.5 F 10/12/22 22:30 Pulse Rate 70 10/12/22 22:30 Respiratory Rate 16 10/12/22 22:30 Blood Pressure 128/83 10/12/22 22:30 Pulse Oximetry 100 10/12/22 22:30 Oxygen Delivery Method 10/12/22 22:30 Const General: cooperative and comfortable HENMT Head: normal to inspection and normocephalic Resp Effort & Inspection: normal respiratory effort Cardio Rate: regular rate GI Inspection: normal to inspection and non-distended Palpation: tender (Suprapubic) Neuro General: patient alert, patient awake and moves all extremities Extrem General: capillary refill normal Course Orders Ordered: ED Orders 10/12/22 22:31 Urine Culture Stat Urine Microscopic Stat Discontinued Medications Cephalexin HCl (Cephalexin 250 Mg Capsule) 500 mg PO NOW ONE Stop: 10/12/22 23:15 Last Admin: 10/12/22 23:28 Dose: 500 mg Documented By: ADELE Ketorolac Tromethamine (Ketorolac 30 Mg/Ml Vial) 30 mg IM NOW ONE Stop: 10/12/22 23:15 Last Admin: 10/12/22 23:28 Dose: 30 mg Documented By: ADELE Vital Signs Vital signs: Vital Signs - 8 hr 10/12/22 22:30 10/12/22 23:56 Temperature 98.5 F Pulse Rate 70 67 Respiratory Rate 16 12 Blood Pressure 128/83 128/83 Pulse Oximetry 100 98 Oxygen Delivery Method Room Air Room Air Medical Decision Making Differential Diagnosis Differential Diagnosis: UTI, pyelo, menstrual cramps, appendicitis, and others Condition is:: Well Controlled Medical Records Medical records reviewed: Yes I reviewed the patient's medical records. Lab Data Lab results reviewed: Yes I reviewed the patient's lab results. Labs: Lab Results 10/12/22 Range/Units 22:31 Urine RBC 0-1/hpf (0-5/HPF) Urine WBC 5-10/hpf H (0-5/HPF) Ur Squamous Epith Cells 1-5 /hpf D (0-5/HPF) Urine Bacteria Moderate (10-30) H (None) Point of Care Testing Test Results Negative Urine Dip Bedside Urine Glucose Negative Bedside Urine Bilirubin - Negative Bedside Urine Ketone - Negative Urine Specific Central 1.005 Bedside Urine Occult Blood ++ Bedside Urine pH 6.0 Bedside Urine Protein - Negative Bedside Urine Urobilinogen +/- 1mg Bedside Urine Nitrite + Positive Bedside Urine Leukocytes + 70 Esterase Point of care testing: Point of Care Testing Test Results Negative Urine Dip Bedside Urine Glucose Negative Bedside Urine Bilirubin - Negative Bedside Urine Ketone - Negative Urine Specific Central 1.005 Bedside Urine Occult Blood ++ Bedside Urine pH 6.0 Bedside Urine Protein - Negative Bedside Urine Urobilinogen +/- 1mg Bedside Urine Nitrite + Positive Bedside Urine Leukocytes + 70 Esterase MDM Narrative Medical decision making narrative: She does have suprapubic tenderness. No right lower quadrant tenderness no left lower quadrant tenderness. She is having some dysuria. Her urine is nitrite positive. Given her presentation today we will treat her as a urinary tract infection. Physical exam was not consistent with pyelo. She was given a dose of antibiotics here in the ER and will send home with a prescription for the remainder. If her symptoms worsen or do not improve she will return to the emergency department. She understands there is a urine culture pending at the time of her discharge contact her if needed to change any antibiotics. Discharge Plan Departure Patient Disposition: Home Clinical Impression: Urinary tract infection Instructions: DI for Urinary Tract Infection (UTI) Activity Restrictions/Additional Instructions: I do recommend that you take the antibiotics as directed. Can continue to take the azo as needed as well. I suspect that your symptoms will improve with the antibiotics. Urine culture was pending at the time of your discharged today. We will contact you we need to change any antibiotics based on this culture result. I recommend that you talk with your primary doctor about potentially referral to a analysis or research safety inspector/urologist given your frequent urinary tract infections. Return to the emergency department for any new symptoms. You can take Tylenol or ibuprofen for discomfort. Prescriptions: New cephalexin 500 mg capsule 500 mg PO BID 5 Days Qty: 10 0RF Referrals: Miscellaneous,DoctorMD [Primary Care Provider] - Stand Alone Forms: Patient Portal/API
[2022-10-12] MEDS: KETOROLAC 30 MG/ML VIAL IM (23:28)
[2022-10-12] MEDS: cephALEXin 250 MG CAPSULE 500 MG PO (23:28)
[2022-10-12 23:56] VITALS: BP 128/83; PULSE 67; RESP 12; O2SAT 98
== END 2022-10-12 23:57 | disposition home or self-care (01) ==
PROVIDERS: Emergency Provider Emergency Medicine
DX: N39.0 Urinary tract infection, site not specified (principal)
CPT/HCPCS: 81003; 81015; 81025; 87086; 96372; 99283; J1885

== ENCOUNTER 2023-09-17 22:43 | Emergency (ER) | payer OTHER, SELFPAY ==
[2023-09-17 22:46] VITALS: BP 109/54; PULSE 77; RESP 18; TEMP 36.6; O2SAT 98; BMI 16.7
[2023-09-17 22:58] VITALS: BP 100/54; PULSE 79; RESP 19; O2SAT 99
[2023-09-17 22:59] VITALS: BP 100/54; PULSE 78; O2SAT 98
[2023-09-17 23:00] VITALS: BP 99/51; PULSE 71; O2SAT 98
--- NOTE | 2023-09-17 23:12 | ED_ITS ---
HPI - General Adult General Chief complaint: Urogenital-Female Stated complaint: pain lower ab toward back T-2/HX UTI Time Seen by Provider: 09/17/23 22:55 Source: patient Mode of arrival: Ambulatory History of Present Illness HPI narrative: Patient is a 43-year-old female. She is here for evaluation of lower abdominal and back discomfort for the past 2 days. She states she just finished her menstrual cycle. She has not having any vaginal bleeding. No change in bowel habits. She has had a bowel movement in the past 2 days that did not change her abdominal pain at all. She does have a history of urinary tract infections but states that it very frequently is associated with burning and itching and she has not specifically having those symptoms however this morning she states that she had an episode of urinary hesitancy. States she tried to go to the bathroom but could not. After a short period of time she then was able to empty her bladder and has been urinating normally since then. No fevers but is having chills. No history of kidney stones. Related Data Home Medications Medication Instructions Recorded Confirmed [id number] 50 1 cap PO Q6H PRN 05/05/23 05/05/23 mg-325 mg-40 mg capsule cephalexin 500 mg capsule 500 mg PO .COMPLEX recurrent UTI 05/05/23 05/05/23 Allergies Allergy/AdvReac Type Severity Reaction Status Date / Time latex Allergy Intermediate Hives Verified 05/05/23 11:19 Review of Systems Constitutional Constitutional: Reports system reviewed and no additional complaints, except as documented Gastrointestinal Gastrointestinal: Reports system reviewed and no additional complaints, except as documented Genitourinary Genitourinary: Reports system reviewed and no additional complaints, except as documented Musculoskeletal Musculoskeletal: Reports system reviewed and no additional complaints, except as documented Integumentary/Breasts Skin/Breast: Reports system reviewed and no additional complaints, except as documented Patient History Medical History Vaginal delivery Social History Smoking Status: Never smoker Smoking Status: Never smoker alcohol intake frequency: holidays/special occasions only Substance Use Type: does not use Exam Initial Vital Signs Initial Vital Signs: Vital Signs Temperature 97.8 F 09/17/23 22:46 Pulse Rate 77 09/17/23 22:46 Respiratory Rate 18 09/17/23 22:46 Blood Pressure 109/54 L 09/17/23 22:46 Pulse Oximetry 98 09/17/23 22:46 Oxygen Delivery Method Room Air 09/17/23 22:46 Const General: cooperative, comfortable and No ill appearing HENCA Head: normal to inspection and normocephalic Resp Effort & Inspection: normal respiratory effort Auscultation: clear to auscultation bilaterally Cardio Rate: regular rate Rhythm: regular rhythm GI Inspection: normal to inspection and non-distended Palpation: soft, No firm, No guarding and tender (Lower abdomen, left adnexa) Back/Spine/Pelvis Back: No CVA tenderness Neuro General: patient alert, patient awake and moves all extremities Extrem General: capillary refill normal Course Orders Ordered: ED Orders 09/17/23 23:12 CT abdomen pelvis w con Stat 09/17/23 23:25 Complete Blood Count AUTO DIFF Stat Comprehensive Metabolic Panel Stat Lipase Stat 09/18/23 01:37 US pelvic complete Stat Ondansetron HCl (Ondansetron 4 Mg Odt) 4 mg SL NOW PRN PRN Reason: Nausea And Vomiting Ondansetron HCl (Ondansetron 4 Mg/2 Ml Inj) 4 mg IV NOW PRN PRN Reason: Nausea And Vomiting Last Admin: 09/17/23 23:19 Dose: 4 mg Documented By: MECHELLE Discontinued Medications Ketorolac Tromethamine (Ketorolac 30 Mg/Ml Vial) 30 mg IV NOW ONE Stop: 09/17/23 23:13 Last Admin: 09/17/23 23:24 Dose: 30 mg Documented By: MECHELLE Vital Signs Vital signs: Vital Signs - 8 hr 09/17/23 22:46 09/17/23 22:58 09/17/23 22:59 Temperature 97.8 F Pulse Rate 77 79 Respiratory Rate 18 19 Blood Pressure 109/54 L 100/54 L 100/54 L Pulse Oximetry 98 99 Oxygen Delivery Method Room Air 09/17/23 22:59 09/17/23 23:00 09/17/23 23:00 Temperature Pulse Rate 78 71 Respiratory Rate Blood Pressure 99/51 L Pulse Oximetry 98 98 Oxygen Delivery Method 09/17/23 23:30 09/17/23 23:42 09/17/23 23:42 Temperature Pulse Rate 69 70 Respiratory Rate Blood Pressure 93/51 L Pulse Oximetry 95 99 Oxygen Delivery Method 09/18/23 00:00 09/18/23 00:00 09/18/23 00:30 Temperature Pulse Rate 72 Respiratory Rate Blood Pressure 102/52 L 86/44 L Pulse Oximetry 96 Oxygen Delivery Method 09/18/23 00:30 09/18/23 00:37 09/18/23 00:37 Temperature Pulse Rate 69 70 Respiratory Rate Blood Pressure 81/46 L Pulse Oximetry 96 96 Oxygen Delivery Method 09/18/23 00:38 09/18/23 00:38 09/18/23 01:00 Temperature Pulse Rate 76 Respiratory Rate Blood Pressure 87/50 L 89/52 L Pulse Oximetry 98 Oxygen Delivery Method 09/18/23 01:00 09/18/23 01:30 09/18/23 01:30 Temperature Pulse Rate 70 65 Respiratory Rate Blood Pressure 94/52 L Pulse Oximetry 96 96 Oxygen Delivery Method 09/18/23 02:00 09/18/23 02:00 09/18/23 02:30 Temperature Pulse Rate 69 Respiratory Rate Blood Pressure 101/56 L 105/60 Pulse Oximetry 97 Oxygen Delivery Method 09/18/23 02:30 09/18/23 02:40 09/18/23 02:40 Temperature Pulse Rate 64 72 Respiratory Rate Blood Pressure 106/56 L Pulse Oximetry 97 98 Oxygen Delivery Method 09/18/23 03:00 09/18/23 03:00 09/18/23 03:30 Temperature Pulse Rate 62 Respiratory Rate 16 Blood Pressure 107/54 L 103/49 L Pulse Oximetry 95 Oxygen Delivery Method Room Air 09/18/23 03:30 09/18/23 04:00 09/18/23 04:00 Temperature Pulse Rate 64 60 Respiratory Rate Blood Pressure 111/51 L Pulse Oximetry 94 96 Oxygen Delivery Method Medical Decision Making Lab Data Lab results reviewed: Yes I reviewed the patient's lab results. 09/17/23 23:25 09/17/23 23:25 Labs: Lab Results 09/17/23 Range/Units 23:25 WBC 6.7 (4.5-11.0) X10^3/uL RBC 4.28 (4.0-5.2) X10^6/uL Hgb 11.7 L (12.0-16.0) g/dL Hct 34.4 L (36-46) % MCV 80.5 (80-100) fL MCH 27.4 (26-34) PG MCHC 34.0 (30-36) % RDW 14.6 (11.6-14.8) % Plt Count 249 (150-400) X10^3/uL Neut % (Auto) 54.8 (50-75) % Lymph % (Auto) 29.4 (25-40) % Bartholomew % (Auto) 8.6 (3-14) % Eos % (Auto) 4.6 H (2-4) % Baso % (Auto) 2.6 H (0-2) % Neut # (Auto) 3700 (6932-8928) /uL Lymph # (Auto) 2000 (2315-0537) /uL Bartholomew # (Auto) 600 (0-900) /uL Eos # (Auto) 300 (0-450) /uL Baso # (Auto) 200 H (0-100) /uL Sodium 136 L (137-145) mmol/L Potassium 3.9 (3.4-5.1) mmol/L Chloride 104 (98-107) mmol/L Carbon Dioxide 27 (22-32) mmol/L BUN 12 (7-17) mg/dL Creatinine 0.59 (0.52-1.04) mg/dL Estimated GFR > 60 (>60) mL/min BUN/Creatinine Ratio 20.3 (6-22) Glucose 95 (70-100) mg/dL Calcium 9.0 (8.4-10.2) mg/dL Total Bilirubin 0.4 (0.2-1.3) mg/dL AST 23 (14-36) IU/L ALT 16 (<35) IU/L Alkaline Phosphatase 34 L (38-126) U/L Total Protein 6.9 (6.3-8.2) g/dL Albumin 4.0 (3.5-5.0) g/dL Globulin 2.9 (1.7-4.1) g/dL Albumin/Globulin Ratio 1.4 (1.0-2.8) Lipase 253 (23-300) U/L Point of Care Testing Test Results Negative Urine Dip Bedside Urine Glucose Negative Bedside Urine Bilirubin - Negative Bedside Urine Ketone - Negative Urine Specific [place] 1.005 Bedside Urine Occult Blood - Negative Bedside Urine pH 7.0 Bedside Urine Protein - Negative Bedside Urine Urobilinogen - Negative Bedside Urine Nitrite - Negative Bedside Urine Leukocytes - Negative Esterase Point of care testing: Point of Care Testing Test Results Negative Urine Dip Bedside Urine Glucose Negative Bedside Urine Bilirubin - Negative Bedside Urine Ketone - Negative Urine Specific [place] 1.005 Bedside Urine Occult Blood - Negative Bedside Urine pH 7.0 Bedside Urine Protein - Negative Bedside Urine Urobilinogen - Negative Bedside Urine Nitrite - Negative Bedside Urine Leukocytes - Negative Esterase Imaging Data CT scan - abdomen/pelvis: Radiologist's Impression: PROCEDURE: CT ABDOMEN PELVIS W CON INDICATIONS: LLQ abd pain and LL back pain TECHNIQUE: After the administration of intravenous contrast, axial sections acquired from the lung bases to the pubic symphysis. Coronal and sagittal reformats were performed. For radiation dose reduction, the following was used: automated exposure control, adjustment of mA and/or kV according to patient size. COMPARISON: None. FINDINGS: Image quality: Diagnostic. Lower Chest: No significant findings. ABDOMEN: Liver: No solid mass. Right hepatic simple cyst measuring 3.8 cm Gallbladder: No radiopaque gallstones or wall thickening. Biliary ducts: No biliary dilation. Pancreas: No ductal dilation. Spleen: Size is within normal limits. Adrenal Glands: No adrenal nodules. Kidneys and Ureters: No hydronephrosis. No solid mass. No complex renal cystic lesion which requires follow up. Stomach and Bowel: Normal colonic caliber, without significant wall thickening. Peritoneum: No abnormal intraperitoneal fluid. No free air. Ventral Wall: No hernia. Abdominal Nodes: No retroperitoneal or mesenteric adenopathy by size criteria. Vessels: Aorta and inferior vena cava are normal in size. PELVIS: Pelvic Organs: There is a heterogeneously enhancing mass with cystic components at the posterior left aspect of the uterus measuring approximately 5.0 cm.. Bladder: Unremarkable. Pelvic Nodes: No enlarged lymph nodes. Miscellaneous: No inguinal hernias are seen. Bones: No acute or suspicious osseous abnormality. IMPRESSION: Heterogeneous solid and cystic uterine mass measuring approximately 5.0 cm. Findings may represent a fibroid, however malignancy cannot be excluded. Recommend further evaluation with pelvic ultrasound. Nonemergent pelvic MRI can also be considered. US - [employer]: Radiologist's Impression: The posterior myometrial abnormalities of the appearance of fibroids, the larger appears to be relatively hypervascular. Small complex cyst of the right ovary. No torsion identified Left ovary not visualized MDM Narrative Medical decision making narrative: CT scan showed what initially was thought to be a mass around the uterus. There was concern that this was a fibroid. Ultrasound confirms this is fibroid. Urinalysis shows no signs of infection. CT scan also shows no signs of renal stones or other acute pathology. Patient states she feels better after Toradol. Potentially her discomfort is coming from the fibroids. Plan will be to discharge patient home with instructions to contact primary doctor for referral to see annual campaign manager. She was given return precautions. She expressed understanding and agreement. Discharge Plan Departure Patient Disposition: Home Clinical Impression: Abdominal pain, Uterine fibroid Instructions: Uterine Fibroids, DI for Abdominal Pain-Adult Activity Restrictions/Additional Instructions: Your workup here in the emergency department is relatively unremarkable except the ultrasound did show what appears to be fibroids in the uterus. This potentially could be causing some of the discomfort that you were having. Recommend that you talk with your primary care doctor about a referral to see annual campaign manager. Continue to take all medications as directed. Return to the emergency department for new symptoms. Prescriptions: No Action [id number] 50-325-40 mg capsule 1 cap PO Q6H PRN cephalexin 500 mg capsule 500 mg PO .COMPLEX Rx Instructions: 500 mg orally once after intercourse; Referrals: Miscellaneous,MD Laurent [Primary Care Provider] - Stand Alone Forms: Patient Portal/API
[2023-09-17] MEDS: ONDANSETRON 4 MG/2 ML INJ IV (23:19)
[2023-09-17] MEDS: KETOROLAC 30 MG/ML VIAL IV (23:24)
[2023-09-17 23:30] VITALS: PULSE 69; O2SAT 95
[2023-09-17 23:42] VITALS: BP 93/51; PULSE 70; O2SAT 99
[2023-09-17 23:48] LABS: Add Manual Diff / Slide Review NO; Basophils Absolute Auto 200 /uL (0-100); Basophils Percent Auto 2.6 % (0-2); Eosinophils Absolute Auto 300 /uL (0-450); Eosinophils Percent Auto 4.6 % (2-4); Hematocrit 34.4 % (36-46); Hemoglobin 11.7 g/dL (12.0-16.0); Lymphocytes Absolute Auto 2000 /uL (1100-4500); Lymphocytes Percent Auto 29.4 % (25-40); Mean Corpuscular Hemoglobin 27.4 PG (26-34); Mean Corpuscular Volume 80.5 fL (80-100); Monocytes Absolute Auto 600 /uL (0-900); Monocytes Percent Auto 8.6 % (3-14); Neutrophils Absolute Auto 3700 /uL (1500-7000); Neutrophils Percent Auto 54.8 % (50-75); Platelet Count 249 X10^3/uL (150-400); Red Blood Cell Count 4.28 X10^6/uL (4.0-5.2); Red Cell Distribution Width 14.6 % (11.6-14.8); White Blood Cell Count 6.7 X10^3/uL (4.5-11.0)
[2023-09-17 23:49] LABS: Alanine Aminotransferase 16 IU/L (<35); Albumin Globulin Ratio 1.4 (1.0-2.8); Alkaline Phosphatase 34 U/L (38-126); Aspartate Aminotransferase 23 IU/L (14-36); BUN Creatinine Ratio 20.3 (6-22); Bilirubin Total 0.4 mg/dL (0.2-1.3); Blood Urea Nitrogen 12 mg/dL (7-17); Carbon Dioxide 27 mmol/L (22-32); Chloride 104 mmol/L (98-107); Estimated Glomerular Filt Rate > 60 mL/min (>60); Globulin 2.9 g/dL (1.7-4.1); Glucose 95 mg/dL (70-100); HEMOLYSIS 20 (0-50); Lipase 253 U/L (23-300); Potassium 3.9 mmol/L (3.4-5.1); Sodium 136 mmol/L (137-145); Total Protein 6.9 g/dL (6.3-8.2)
[2023-09-18] VITALS (12 sets, daily range): BP systolic 81–111; BP diastolic 44–60; PULSE 60–76; RESP 16; O2SAT 94–98
--- NOTE | 2023-09-18 01:37 | DI.US.S_ITS ---
PROCEDURE: US PELVIC COMPLETE INDICATIONS: eval uterine mass TECHNIQUE: Real-time scanning was performed of the pelvic organs, with image documentation. Additional endovaginal scanning was necessary due to incomplete visualization of the adnexal and endometrial structures by transabdominal scanning. COMPARISON: [facility], , US PELVIC COMPLETE, 06/08/2022, 11:28. FINDINGS: Uterus: Uterus is anteverted and normal in size at 10.1 x 5.8 x 8.2 cm. The myometrium is heterogeneous. The endometrium measures 6.9 mm combined thickness. Mid posterior intramural fibroid measuring 1.3 centimeters. Left posterior intramural fibroid measuring 5.9 centimeters. Ovaries: The right ovary measures 3.2 x 3.0 x 2.5 cm, with a calculated ovarian volume of 12.3 cc. There are 2 simple right ovarian cyst measuring 2.4 centimeters and 1.6 centimeters. The left ovary is not visualized. Less than 12 follicles can be seen in the right ovary. No adnexal masses are seen. Other: No pathologic free abdominal or pelvic fluid. IMPRESSION: 1. Uterine fibroids are noted which correlate to the masses seen on CT. The largest fibroid is increased in size compared to prior measuring up to 5.9 centimeters, previously 4.1 centimeters. 2. Right ovarian cysts measuring up to 2.4 centimeters. 3. Left ovary is not visualized. Findings are concordant with preliminary interpretation provided by [facility]. We strive to produce accurate, complete, and clear reports of imaging services. To assist us in improving patient care, this report was composed using standard report templates and voice recognition software. Therefore, it may contain abnormal punctuation, insertions and/or omissions. Occasional wrong-word or sound-alike substitutions may occur. Though we review the report and make efforts to correct it, we do recommend that the report be read carefully in proper context to recognize any text inaccuracies. Dictated by: Broderick Snow M.D. on 09/18/2023 at 8:12 Approved by: Broderick Snow M.D. on 09/18/2023 at 8:18
== END 2023-09-18 04:32 | disposition home or self-care (01) ==
PROVIDERS: Emergency Provider Emergency Medicine
DX: R10.32 Left lower quadrant pain (principal); D25.9 Leiomyoma of uterus, unspecified
CPT/HCPCS: 36415; 74177; 76830; 76856; 80053; 81003; 81025; 83690; 85025; 93976; 96374; 96375; 99284; J1885; J2405; Q9967

== ENCOUNTER → 2024-09-09 11:49 | Outpatient (CLI) | payer OTHER, SELFPAY ==
--- NOTE | 2024-09-09 11:50 | DI.US.S_ITS ---
PROCEDURE: US PELVIC COMPLETE INDICATIONS: MENSTRUAL PAIN TECHNIQUE: Real-time scanning was performed of the pelvic organs, with image documentation. Additional endovaginal scanning was necessary due to incomplete visualization of the adnexal and endometrial structures by transabdominal scanning. COMPARISON: [facility], , US PELVIC COMPLETE, 09/18/2023, 2:21. FINDINGS: Uterus: Uterus is anteverted and normal in size at 8.6 x 6.4 x 8.3 cm. The myometrium is heterogeneous. The endometrium measures 5.4 mm combined thickness. Mid anterior intramural fibroid measuring 1.2 x 0.9 x 1.4 centimeters is new. Similar size of posterior intramural fibroid measuring 5.7 x 3.7 x 5.3 centimeters, previously 3.6 x 5.9 x 5.2 centimeters. Ovaries: The right ovary measures 1.9 x 1.1 x 2.2 cm, with a calculated ovarian volume of 2.4 cc. Dominant follicle measuring 1.3 centimeters. The left ovary measures 2.6 x 2.8 x 2.0 cm, with a calculated ovarian volume of 7.7 cc. Simple cyst measuring 2.1 x 1.8 x 1.9 centimeters. The ovaries have a normal sonographic appearance. Less than 12 follicles can be seen in each ovary. No adnexal masses are seen. Other: No pathologic free abdominal or pelvic fluid. IMPRESSION: Similar size of 5.7 centimeter fibroid. New 1.4 centimeter fibroid. Endometrium is normal in thickness. Normal appearance of the ovaries. Simple cyst in the left ovary measuring 2.1 centimeters, likely physiologic. We strive to produce accurate, complete, and clear reports of imaging services. To assist us in improving patient care, this report was composed using standard report templates and voice recognition software. Therefore, it may contain abnormal punctuation, insertions and/or omissions. Occasional wrong-word or sound-alike substitutions may occur. Though we review the report and make efforts to correct it, we do recommend that the report be read carefully in proper context to recognize any text inaccuracies. Dictated by: Broderick Snow M.D. on 09/09/2024 at 15:45 Approved by: Broderick Snow M.D. on 09/09/2024 at 15:49
== END ==
PROVIDERS: Referring Provider Student in an Organized Health Care Education/Training Program; Visit Provider Student in an Organized Health Care Education/Training Program
DX: N92.6 Irregular menstruation, unspecified (principal); D25.1 Intramural leiomyoma of uterus; N83.292 Other ovarian cyst, left side
CPT/HCPCS: 76830; 76856

== ENCOUNTER → 2025-03-10 12:18 | Outpatient (CLI) | payer OTHER, SELFPAY ==
--- NOTE | 2025-03-10 12:19 | DI.MRI.S_ITS ---
PROCEDURE: MR PELVIS WO/W CON INDICATIONS: menorrhagia with regular cycle, adenomyosis TECHNIQUE: Coronal HASTE, sagittal breath-hold T2 FSE; axial T1 FSE with and without fat saturation through the pelvis. Optional long- and short-axis uterine nonbreath-hold T2 FSE through the uterus. Sagittal or axial dynamic VIBE during administration of contrast. Post-contrast axial or coronal VIBE/2-D FLASH with fat saturation from the iliac crests to the symphysis. Optional diffusion weighted imaging and ADC may be performed. COMPARISON: None. FINDINGS: Image quality: Excellent. Uterus: Uterus is enlarged.. Endometrium is normal in thickness. The junctional zone is thickened, and contains internal T2 hyperintense foci, consistent with diffuse adenomyosis. Additionally, there are 2 lesions which demonstrate T2 hypointense signal with internal T1/T2 hyperintense cystic foci closely associated with the junctional zone, likely representing focal adenomyosis. These measure 3.7 x 4.0 cm along the right posterior upper uterine segment (series 4, image 11) and 3.7 x 4.4 cm along the left posterior mid uterine segment (series 4, image 9). Posterior to the cervix, there is subserosal T1 hyperintense signal (series 12, image 80), probably representing a deep endometrial deposit. There is mild irregularity of the anterior peritoneal reflection (series 3, image 14), with T2 hypointense, T1 hyperintense signal (series 3, image 14). Adnexa: Both ovaries are normal in size, without suspicious cystic or solid lesions. Urinary system: Bladder wall is normal in thickness. Distal ureters are non distended. Urethra appears normal in morphology. Nodes and vessels: No pelvic or inguinal adenopathy by size criteria. Iliac vessels are normal in size. Bowel and peritoneum: No pathologic free pelvic fluid. Inferior colon and small bowel loops are normal in caliber. Soft tissues: No inguinal hernias. No findings of pelvic floor incompetence in the absence of provocation. Bones: Marrow demonstrates normal overall signal. IMPRESSION: Diffuse and large focal adenomyosis of the endometrium. Deep endometrial deposits located at the anterior peritoneal reflection and along the subserosal/posterior margin of the cervix. Dictated by: Ramon Bender M.D. on 03/10/2025 at 15:17 Approved by: Ramon Bender M.D. on 03/10/2025 at 15:30
== END ==
LOC: MRI 12:18
PROVIDERS: Referring Provider Obstetrics & Gynecology Gynecology; Visit Provider Obstetrics & Gynecology Gynecology
DX: N92.0 Excessive and frequent menstruation with regular cycle (principal); N80.03 Adenomyosis of the uterus; D25.1 Intramural leiomyoma of uterus; R10.2 Pelvic and perineal pain
CPT/HCPCS: 72197; A9579

== ENCOUNTER 2025-09-14 11:52 | Emergency (ER) | payer OTHER, SELFPAY ==
[2025-09-14] VITALS (7 sets, daily range): BP systolic 113–140; BP diastolic 65–67; PULSE 64–86; RESP 9–33; TEMP 36.8; O2SAT 96–100; BMI 17.2
--- NOTE | 2025-09-14 12:05 | DI.RAD.S_ITS ---
PROCEDURE: XR RIBS RT MIN 3V W CXR 1V INDICATIONS: right chest pain TECHNIQUE: 2 views of the ribs were acquired, along with a single view chest. COMPARISON: None. FINDINGS: Surgical changes and devices: None. Bones and chest wall: No fractures or dislocations. No suspicious bony lesions. Overlying soft tissues appear unremarkable. Lungs and pleura: No pleural effusions or pneumothorax. Lungs appear clear. Mediastinum: Mediastinal contours appear normal. Heart size is normal. IMPRESSION: No displaced rib fracture or pneumothorax. Approved by: Lucy Gold M.D.,Ph.D. on 09/14/2025 at 13:33
--- NOTE | 2025-09-14 12:06 | ED.GENADULT ---
HPI - General Adult General Chief complaint: Chest Pain Stated complaint: Stabbing pain Rt chest/rib, coughing Time Seen by Provider: 09/14/25 12:01 History of Present Illness HPI narrative: 45-year-old woman with no significant medical history had had a slight cough for about 2 weeks and then developed severe right chest pain. It localizes to the mid axillary line approximately rib 9/10. Not associated with any trauma beyond coughing. He is unable to take deep breaths secondary to pain. [place] celebre[place], she did take a dose of this just prior to arrival it has not provided any pain relief. Previous to that she had been taking appropriate doses of naproxen. She is on estrogen, no recent travel, no lower extremity edema, she is not . Related Data Home Medications ?Medication ?Instructions ?Recorded ?Confirmed [id number] 50 1 cap PO Q6H PRN 05/05/23 09/28/24 mg-325 mg-40 mg capsule cephalexin 500 mg capsule 500 mg PO .COMPLEX recurrent UTI 05/05/23 09/28/24 Previous Rx's ?Medication ?Instructions ?Recorded naproxen 500 mg tablet 500 mg PO BID PRN pain #30 tabs 09/28/24 oxycodone-acetaminophen 5 mg-325 1 tab PO Q6H PRN pain #14 tabs 09/14/25 mg tablet (Percocet) Allergies Allergy/AdvReac Type Severity Reaction Status Date / Time latex Allergy Intermediate Hives Verified 09/28/24 11:02 Review of Systems Review of Systems Narrative: Pertinent positive and negative findings as per HPI Patient History Medical History Secondary dysmenorrhea Vaginal delivery Social History Smoking Status: Never smoker alcohol intake frequency: holidays/special occasions only Exam Narrative Exam Narrative: General: Anxious, in obvious pain, shallow breathing, reproducible chest pain with palpation along the right mid axillary line HEENT: Moist mucous membranes, normal sclera with reactive pupils, Respiratory: Lungs are clear to auscultation, no wheezing no rales no rhonchi. No accessory muscle use pain with full inspiration Cardiac: Regular rate and rhythm no murmurs no bruits Abdomen: Soft, nontender, no rebound or guarding, no flank pain Skin: Warm and dry, no rashes Neurologic: Grossly neurologically intact with no obvious asymmetries or abnormalities Extremities: No trauma, no lower extremity edema Psych: Cooperative, appropriate insight and affect Initial Vital Signs Initial Vital Signs: Vital Signs Pulse Rate 83 09/14/25 12:02 Respiratory Rate 18 09/14/25 12:02 Pulse Oximetry 100 09/14/25 12:02 Course Orders Ordered: ED Orders 09/14/25 12:05 XR ribs RT min 3V w CXR1V Stat Complete Blood Count AUTO DIFF Stat Comprehensive Metabolic Panel Stat D Dimer Stat Troponin I Stat Hydromorphone HCl (Hydromorphone 1 Mg/Ml Syringe) 0.5 mg IV Q15M PRN PRN Reason: pain Last Admin: 09/14/25 12:20 Dose: 0.5 mg Documented By: BRIJESH Discontinued Medications Dexamethasone (Dexamethasone 10 Mg/Ml Vial) 10 mg IV NOW ONE Stop: 09/14/25 12:06 Last Admin: 09/14/25 12:20 Dose: 10 mg Documented By: BRIJESH Hydromorphone HCl (Hydromorphone 1 Mg/Ml Syringe) 0.5 mg IV Q1H PRN PRN Reason: pain Ondansetron HCl (Ondansetron 4 Mg/2 Ml Inj) 4 mg IV NOW ONE Stop: 09/14/25 12:06 Last Admin: 09/14/25 12:19 Dose: 4 mg Documented By: BRIJESH Oxycodone/Acetaminophen (Oxycodone/Apap 5/325 Prepack) 1 bottle MISC DIRECTED ONE Stop: 09/14/25 13:18 Vital Signs Vital signs: Vital Signs - 8 hr 09/14/25 12:02 09/14/25 12:09 09/14/25 12:30 Temperature 98.3 F Pulse Rate 83 86 77 Respiratory Rate 18 20 33 H Blood Pressure 140/65 Pulse Oximetry 100 100 99 Oxygen Delivery Method Room Air 09/14/25 13:00 09/14/25 13:30 Temperature Pulse Rate 64 78 Respiratory Rate 9 L 22 Blood Pressure Pulse Oximetry 97 98 Oxygen Delivery Method Medical Decision Making Lab Data 09/14/25 12:05 09/14/25 12:05 Labs: Lab Results 09/14/25 Range/Units 12:05 WBC 7.4 (4.5-11.0) X10^3/uL RBC 5.20 (4.0-5.2) X10^6/uL Hgb 14.1 (12.0-16.0) g/dL Hct 41.9 (36-46) % MCV 80.7 (80-100) fL MCH 27.1 (26-34) PG MCHC 33.6 (30-36) % RDW 14.4 (11.6-14.8) % Plt Count 361 (150-400) X10^3/uL Neut % (Auto) 67.5 (50-75) % Lymph % (Auto) 20.8 L (25-40) % [place] % (Auto) 8.4 (3-14) % Eos % (Auto) 3.0 (2-4) % Baso % (Auto) 0.3 (0-2) % Neut # (Auto) 5000 (7423-7839) /uL Lymph # (Auto) 1500 (5610-8337) /uL [place] # (Auto) 600 (0-900) /uL Eos # (Auto) 200 (0-450) /uL Baso # (Auto) 0 (0-100) /uL D-Dimer < 215 (<500) ng/ml Sodium 141 (137-145) mmol/L Potassium 4.0 (3.4-5.1) mmol/L Chloride 112 H (98-107) mmol/L Carbon Dioxide 19 L (22-32) mmol/L BUN 10 (7-17) mg/dL Creatinine 0.84 (0.52-1.04) mg/dL Estimated GFR > 60 (>60) mL/min BUN/Creatinine Ratio 11.9 (6-22) Glucose 98 (70-99) mg/dL Calcium 9.1 (8.4-10.2) mg/dL Total Bilirubin 0.5 (0.2-1.3) mg/dL AST 22 (14-36) IU/L ALT 13 (<35) IU/L Alkaline Phosphatase 44 (38-126) U/L Troponin I < 0.012 (0.01-0.034) ng/mL Total Protein 8.1 (6.3-8.2) g/dL Albumin 4.8 (3.5-5.0) g/dL Globulin 3.3 (1.7-4.1) g/dL Albumin/Globulin Ratio 1.5 (1.0-2.8) MDM Narrative Medical decision making narrative: CC: Acute right chest pain Data collected from: patient Differential considered: Pleurisy, spontaneous rib fracture from coughing, PE, pneumothorax, pneumonia Exam documented above, pertinent findings include: Obvious pain and tenderness with point tenderness appreciated, abdomen is benign no lower extremity edema Imaging studies independently reviewed: No obvious rib fractures, infiltrates or pneumothorax Labs: CBC is unremarkable Chemistries are reassuring D-dimer is low Treatments: Dexamethasone IV and half a mg of Dilaudid Discussion: 45-year-old woman with mild upper respiratory infection significant coughing now with significant right lower rib anterior axillary line pain. No evidence of fractures, infiltrates, pneumothorax. With low D-dimer PE is felt to be less likely. At this point most likely explanation is rib fracture or periosteal inflammation from her recent cough. She has anti-inflammatory nonsteroidals available at home, reviewed with her anticipated course of resolution of symptoms in fact that it maybe up to a month that she is still hurting. She is given a small prescription for Percocet to help with severe pain and instructions on avoiding constipation with this. Questions are answered she is safe they discharge Additional Information: HEART score =0 Discharge Plan Departure Patient Disposition: Home Clinical Impression: Rib pain on right side Instructions: DI for Rib Contusion Activity Restrictions/Additional Instructions: Thank you for coming in today X-rays do not show an obvious fracture, there was no evidence of pneumothorax, pneumonia or collapsed lung. I suspect that you probably pulled the muscle away from the bone causing significant irritation to the periosteum, the living lining of the bone. This is going to hurt for the same time and in the same way a rib fracture would. Typically up to 6 weeks. Using the Celebrex that you were given yesterday, is very appropriate to help with moderate pain. I have given you a small prescription for Percocet to use for severe pain. Percocet is a narcotic, it will cause constipation please take it with a stool softener. Prescription was electronically transmitted to [facility] in [place] If you find that you are getting worse or develop any new symptoms, please feel free to return to the emergency department for further evaluation. Prescriptions: New oxycodone-acetaminophen [Percocet] 5-325 mg tablet 1 tab PO Q6H PRN (Reason: pain) Qty: 14 0RF No Action naproxen 500 mg tablet 500 mg PO BID PRN (Reason: pain) Qty: 30 3RF [id number] 50-325-40 mg capsule 1 cap PO Q6H PRN cephalexin 500 mg capsule 500 mg PO .COMPLEX Rx Instructions: 500 mg orally once after intercourse; Referrals: Miscellaneous,Doctor, MD [Primary Care Provider, Medical] Stand Alone Forms: Patient Portal/API
[2025-09-14 12:15] LABS: Add Manual Diff / Slide Review NO; Hematocrit 41.9 % (36-46); Hemoglobin 14.1 g/dL (12.0-16.0); Lymphocytes Absolute Auto 1500 /uL (1100-4500); Mean Corpuscular HGB Conc 33.6 % (30-36); Mean Corpuscular Hemoglobin 27.1 PG (26-34); Mean Corpuscular Volume 80.7 fL (80-100); Platelet Count 361 X10^3/uL (150-400)
[2025-09-14] MEDS: ONDANSETRON 4 MG/2 ML INJ IV (12:19)
[2025-09-14 12:24] LABS: Alanine Aminotransferase 13 IU/L (<35); Albumin 4.8 g/dL (3.5-5.0); Albumin Globulin Ratio 1.5 (1.0-2.8); Alkaline Phosphatase 44 U/L (38-126); Blood Urea Nitrogen 10 mg/dL (7-17); Calcium 9.1 mg/dL (8.4-10.2); Carbon Dioxide 19 mmol/L (22-32); Chloride 112 mmol/L (98-107); Estimated Glomerular Filt Rate > 60 mL/min (>60); Globulin 3.3 g/dL (1.7-4.1); Glucose 98 mg/dL (70-99); HEMOLYSIS < 15 (0-50); Potassium 4.0 mmol/L (3.4-5.1); Sodium 141 mmol/L (137-145); Total Protein 8.1 g/dL (6.3-8.2)
[2025-09-14 12:35] LABS: Troponin I < 0.012 ng/mL (0.01-0.034)
--- NOTE | 2025-09-14 14:32 | PC.NURSE ---
Pt given D/C paperwork. Pt IV lined Pulled.
== END 2025-09-14 14:33 | disposition home or self-care (01) ==
PROVIDERS: Emergency Provider Emergency Medicine
DX: R07.89 Other chest pain (principal); R05.9 Cough, unspecified
CPT/HCPCS: 71101; 80053; 84484; 85025; 85379; 96374; 96375; 99283; 99284; J1100; J1171; J2405